=== PATIENT | female | born 1950 | race Caucasian/White ===

== ENCOUNTER 2025-02-26 08:10 | Day surgery (SDC) | payer MEDICARE, OTHER, SELFPAY ==
[2025-02-26 08:30] VITALS: BMI 33.9
[2025-02-26 08:44] VITALS: BP 168/63
[2025-02-26 08:59] VITALS: BP 168/63
[2025-02-26 09:14] LABS: Glucose - Point of Care 219 mg/dl (70-99)
[2025-02-26 09:27] LABS: Hematocrit 35.1 % (37.0-47.0); Hemoglobin 11.0 g/dL (12.0-16.0); Mean Corp Hgb Conc. 31.3 g/dL (33.0-37.0); Mean Corpuscular Volume 90.0 fL (81.0-99.0); Platelet Count 164 10^3/uL (130-400); Red Cell Dist. Width 15.4 % (11.5-14.5)
[2025-02-26 09:50] LABS: ALT (SGPT) 14 U/L (0-35); AST (SGOT) 17 U/L (14-36); Albumin 4.3 g/dl (3.5-5.0); Alkaline Phosphatase 346 U/L (38-126); Blood Urea Nitrogen 29 mg/dl (7-17); Calcium 8.6 mg/dl (8.4-10.2); Carbon Dioxide 29 mmol/L (22-30); Chloride 94 mmol/L (98-107); Estimated Creatinine Clearance 14 ml/min; Glucose 223 mg/dl (70-99); Potassium 5.0 mmol/L (3.5-5.1); Sodium 132 mmol/L (135-145); Total Protein 8.4 g/dl (6.3-8.2); eGFR 12.38
--- NOTE | 2025-02-26 11:05 | ITS.CL.PACE ---
[employer] - Pacemaker Implant
Pacemaker Implant
Procedure Report:
PACEMAKER GENERATOR CHANGE
Date of Procedure: February 26, 2025
Primary Engineer Byproduct: Dr. Librado Jimenez
PROCEDURES:
1. Removal of dual chamber PPM generator at [facility]
2. Implant of new dual chamber PPM generator
INDICATION FOR PROCEDURE:
1. PM generator at [facility]
HISTORY:
74-year-old female with a history of sick sinus syndrome and cardiomyopathy ejection fraction 35% on guideline based medical therapy with a left-sided AV fistula and a left-sided dual-chamber pacemaker placed internationally.
'Time out' called and confirmed
Antibiotic: Ancef
Sedation/anesthesia: Conscious. Limited by right pneumonectomy and we utilized additional local sedation for the procedure.
After informed consent and patient safety timeout the patient was sedated by the anesthesiology service. The chronic incision was opened with the device freed from the pocket and leads with the chronic generator removed from the field. Hemostasis
was excellent and the new generator was brought to the field connected to the chronic leads and tied to the pectoral floor. Pocket was washed with antibiotic solution and closed in 2 observable suture layers with Steri-Strips and Aquacel applied.
EXPLANTED PPM GENERATOR: [employer] implanted 2016 model L301 serial #[id number]
IMPLANTED PPM GENERATOR:���[employer] model L311 serial #[id number] implanted today
Existing RA lead: Guidant model 4135 serial #[id number] implanted 2015
Existing RVLead: Guidant model 4136 serial #[id number] implanted 2015
DEVICE TESTING:����������
Sensing:����RA 2.1 mV,���RV 17.1 mV�������
Capture:����RA 0.7 V@0.5ms,��RV 1.2 V@0.5ms��
Ohms:��������RA 476,���RV 537������������
FINAL PROGRAMMING
Shay Pacing: DDD�60-130�ppm
COMPLICATIONS:
None
CONCLUSIONS:
1. Successful explant of dual chamber permanent pacemaker
2. Successful implant of dual chamber permanent pacemaker
RECOMMENDATIONS:
1. Routine post-op care and prophylactic antibiotics
2. In-Office wound check in 5-10 days.
3. Office interrogation in 6-8 weeks
Copy to: Dr. Librado Jimenez at [facility]
[2025-02-26 11:19] VITALS: BP 160/56
[2025-02-26 11:34] VITALS: BP 143/57
[2025-02-26 11:49] VITALS: BP 146/44
== END 2025-02-26 12:17 | disposition home or self-care (01) ==
LOC: CATH 08:10
PROVIDERS: ATTENDING PHYSICIAN Internal Medicine Cardiovascular Disease; FAMILY PHYSICIAN Internal Medicine; OTHER PHYSICIAN Internal Medicine Cardiovascular Disease
DX: Z45.010 Encounter for checking and testing of cardiac pacemaker pulse generator [battery] (principal); I49.5 Sick sinus syndrome; I42.9 Cardiomyopathy, unspecified; Z79.82 Long term (current) use of aspirin; Z79.899 Other long term (current) drug therapy; Z79.4 Long term (current) use of insulin; Z79.890 Hormone replacement therapy
CPT/HCPCS: 33228; 80053; 82962; 85027; C1785